=== PATIENT | female | born 1985 | race Caucasian/White ===

== ENCOUNTER 2020-07-13 21:40 | Emergency (ER) | payer OTHER ==
[~2020-07-13] VITALS: Ht 167.6 cm; Wt 85.0 kg
[2020-07-13 21:46] VITALS: TEMP 97.3
[2020-07-13 23:16] VITALS: BP 127/85; PULSE 73
== END 2020-07-13 23:16 | disposition home or self-care (01) ==
LOC: COL.ER 21:40
DX: S09.90XA Unspecified injury of head, initial encounter (principal); S16.1XXA Strain of muscle, fascia and tendon at neck level, initial encounter; R20.2 Paresthesia of skin; V49.59XA Passenger injured in collision with other motor vehicles in traffic accident, initial encounter